=== PATIENT | male | born 1960 | race Caucasian/White ===

== ENCOUNTER 2020-07-20 18:44 | Emergency (ER) | payer MEDICAID ==
[~2020-07-20] VITALS: Ht 170.2 cm; Wt 125.0 kg
--- NOTE | 2020-07-20 19:04 | NUR ---
INITIAL PT CONTACT. PT PRESENTS TO THE ED C/O LEFT CHEST AND RIB PAIN. WORSE WITH MOVEMENT, DEEP BREATHING, COUGHING AND PALPATION. PT DENIES RECENT TRAUMA TO THE AREA. PAIN IS DESCRIBED SHARP. PT ALSO STATES HE HAS NOT BEEN TAKING HIS RX FOR HTN FOR 2 DAYS, "I JUST CANT REMEBER TO TAKE IT". PT SITTING UPRIGHT ON GURNEY, NAD. PT DENIES ANY NEEDS AT THIS TIME. CALL LIGHT AND PERSONAL BELONGINGS WITHIN REACH. CONTINUOUS PULSE OX AND CARDIAC MONITORING IN PLACE. ERP AT BEDSIDE.
[2020-07-20] MEDS ORDERED: LABETALOL 5MG/ML, 20ML ONE (19:18)
[2020-07-20] MEDS ORDERED: MORPHINE SULFATE 4 MG/ML, 1ML ONE (19:19)
[2020-07-20] MEDS ORDERED: ONDANSETRON 2MG/ML, 2ML ONE (19:19)
--- NOTE | 2020-07-20 19:28 | NUR ---
PT TO IMAGING
[2020-07-20] MEDS ORDERED: ONDANSETRON 2MG/ML, 2ML IVPush ONE (19:30)
[2020-07-20] MEDS ORDERED: LABETALOL 5MG/ML, 20ML IVPush ONE (19:30)
[2020-07-20] MEDS ORDERED: MORPHINE SULFATE 4 MG/ML, 1ML IVPush PRN (19:30)
[2020-07-20] MEDS ORDERED: SODIUM CHLORIDE FLUSH 10ML SYR IVF ONE (19:30)
--- NOTE | 2020-07-20 19:35 | NUR ---
PT RETURNED FROM IMAGING
--- NOTE | 2020-07-20 19:45 | NUR ---
UPON ENTRY INTO ROOM, PT O2 NOTED TO BE 88% ON ROOM AIR WHILE SLEEPING. PT STATES "I FEEL WAY MORE RELAXED NOW AND MY PAIN IS MUCH BETTER, STILL HURTS WHEN I MOVE THOUGH". PT DENIES ANY NEEDS AT THIS TIME. CALL LIGHT AND PERSONAL BELONGINGS WITHIN REACH.
--- NOTE | 2020-07-20 20:02 | NUR ---
ERP AT BEDSIDE
[2020-07-20 20:35] VITALS: BP 166/72
--- NOTE | 2020-07-20 20:41 | NUR ---
Patient given discharge instructions and they have confirmed that they understand the instructions. Patient ambulatory with steady gait.
== END 2020-07-20 20:43 | disposition home or self-care (01) ==
LOC: ED 19:21
DX: S29.011A Strain of muscle and tendon of front wall of thorax, initial encounter (principal); M94.0 Chondrocostal junction syndrome [Tietze]; I44.4 Left anterior fascicular block; R94.31 Abnormal electrocardiogram [ECG] [EKG]; I10 Essential (primary) hypertension; J44.9 Chronic obstructive pulmonary disease, unspecified; F17.200 Nicotine dependence, unspecified, uncomplicated; X58.XXXA Exposure to other specified factors, initial encounter; Y93.89 Activity, other specified; Y92.89 Other specified places as the place of occurrence of the external cause; Y99.8 Other external cause status
CPT/HCPCS: 71101; 93005; 96374; 96375; 99284; J2270; J2405